=== PATIENT | male | born 1960 | race Caucasian/White ===

== ENCOUNTER 2022-04-22 20:30 | Inpatient (IN) | payer OTHER, MEDICAID ==
[~2022-04-22] VITALS: Ht 165.1 cm; Wt 61.7 kg
[2022-04-22 21:46] VITALS: BP_SYST 138
--- NOTE | 2022-04-22 21:54 | NUR ---
Patient to bed 2 for evaluation and treatment
--- NOTE | 2022-04-22 23:20 | NUR ---
STANLEY Olsen at bedside examining patient.
[2022-04-22] MEDS ORDERED: MAG HYDROX/AL HYDROX/SIMETH 30 ML, LIDOCAINE VISCOUS 2% 15ML (PO) 15 ML, DICYCLOMINE HC... PO ONE ×3 (23:30)
--- NOTE | 2022-04-23 00:01 | NUR ---
[facility]
[2022-04-23 01:29] LABS: BILIRUBIN,URINE 1+ (NEGATIVE); BLOOD, URINE 3+ (NEGATIVE); COLOR,URINE YELLOW (YELLOW); GLUCOSE,URINE NEGATIVE (NEGATIVE); KETONES,URINE 3+ (NEGATIVE); LEUKOCYTE ESTERASE ,URINE NEGATIVE (NEGATIVE); NITRITE, URINE NEGATIVE (NEGATIVE); PH,URINE 6.5 (5.0-8.0); PROTEIN URINE 1+ (NEGATIVE)
[2022-04-23 01:29] LABS: HEMATOCRIT 36.7 % (36-54); HEMOGLOBIN 12.8 g/dL (14.0-18.0); LYMPHOCYTES # (AUTO) 0.8 K/uL (1.0-5.5); LYMPHOCYTES % (AUTO) 7.8 % (20.5-51.5); MEAN CORPUSCULAR HEMOGLOBIN 30 pg (27-31); MEAN CORPUSCULAR HGB CONC 35 % (32-36); MEAN CORPUSCULAR VOLUME 87 fL (79.0-98.0); MONOCYTES % (AUTO) 9.3 % (1.7-9.3); NEUTROPHILS # (AUTO) 8.9 K/uL (1.8-7.7); NEUTROPHILS % (AUTO) 82.9 % (40.0-70.0); PLATELET COUNT (AUTO) 261 K/uL (130-430); RED BLOOD CELL COUNT(AUTO) 4.21 MIL/uL (4.2-6.2); RED CELL DISTRIBUTION WIDTH 12.8 % (9.0-15.0); WHITE BLOOD COUNT (AUTO) 10.8 K/uL (4.8-10.8)
[2022-04-23 01:41] LABS: CALCIUM 9.3 mg/dL (8.4-11.0); CREATININE 0.82 mg/dL (0.55-1.30)
[2022-04-23 01:48] LABS: ALBUMIN 3.3 g/dL (3.4-4.8); TOTAL BILIRUBIN 1.6 mg/dL (0.0-1.0)
--- NOTE | 2022-04-23 01:55 | NUR ---
Admit bed requested Patient will be admitted to care of . Admitted to MS unit. Diagnosis : SBO Inpatient (Yes or No) Y Observation (Yes or No) N Orientation concerns or request close to nursing station (Yes or No) N Covid Status: PENDING From Home (Yes or if No enter name of facility) Y
[2022-04-23] MEDS ORDERED: D5/0.45 NS 1,000 ML IV SCH (02:00)
[2022-04-23 02:22] LABS: CLARITY/URINE HAZY (CLEAR)
[2022-04-23 02:25] LABS: BACTERIA,URINE None Seen /HPF (None Seen); RBC,URINE 80-100 /HPF (0-3); WBC,URINE 0-3 /HPF (0-3)
--- NOTE | 2022-04-23 02:30 | NUR ---
# 22 gauge angiocath placed to L HAND. Use of asceptic technique. Opsite placed over site. Blood return noted. Flushed with 10 cc of normal saline. No evidence of infiltration noted. Patient tolerated well.
[2022-04-23] MEDS ORDERED: NACL 0.9% 1,000 ML IV ONE (03:15)
--- NOTE | 2022-04-23 04:51 | NUR ---
Patient will be admitted to care of MD Jade. Admitted to MS unit. Will go to room 117B. Complete and up to date summary report printed. SBAR report to be given at bedside with opportunity for questions.
--- NOTE | 2022-04-23 05:14 | NUR ---
Report givent to ASHLEY Saavedra.
[2022-04-23 05:57] VITALS: BP_SYST 141
--- NOTE | 2022-04-23 06:10 | NUR ---
Dr. Han Incoming call from Dr. Han. Received orders for NGT to low intermittent suction; ADAM
--- NOTE | 2022-04-23 06:45 | NUR ---
NG tube placed in the Left nares, pending xtray to confirm placement, will endorse to AM RN to connect wall suction once results of xtray are done.
[2022-04-23 08:41] VITALS: BP_SYST 147
[2022-04-23] MEDS ORDERED: MORPHINE 2 MG/ML INJ. SYRINGE IVP PRN (10:45)
[2022-04-23] MEDS ORDERED: ONDANSETRON HCL 4 MG/2 ML VIAL IVP PRN (10:45)
[2022-04-23] MEDS ORDERED: NALOXONE HCL 0.4 MG/ML AMP (NARCAN) IVP PRN (10:45)
[2022-04-23] MEDS ORDERED: LORazepam 2 MG/ML VIAL IVP PRN (10:45)
[2022-04-23] MEDS: D5NS 1,000 ML IV SCH ×2 (15:23→18:02)
[2022-04-23 17:58] VITALS: BP_SYST 140
--- NOTE | 2022-04-23 19:48 | NUR ---
RECEIVED PT LYING IN BED, NO DISTRESS NOTED, DENIES PAIN. AAOX4. PULLED NGT 5CM PER RADIOLOGIST. BROWN DRAINAGE NOTED. ABD MILDLY DISTENDED AND FIRM. IV TO RT FA SITE CDI.
[2022-04-23 20:00] VITALS: BP_SYST 134
[2022-04-24 02:35] VITALS: BP_SYST 137
[2022-04-24] MEDS: D5NS 1,000 ML IV SCH ×3 (06:45→21:13)
[2022-04-24 06:52] LABS: BASOPHILS % (AUTO) 0.1 % (0.0-2.0); EOSINOPHILS % (AUTO) 0.1 % (0.0-4.0); HEMATOCRIT 36.2 % (36-54); HEMOGLOBIN 12.6 g/dL (14.0-18.0); LYMPHOCYTES # (AUTO) 0.8 K/uL (1.0-5.5); LYMPHOCYTES % (AUTO) 10.4 % (20.5-51.5); MEAN CORPUSCULAR HEMOGLOBIN 31 pg (27-31); MEAN CORPUSCULAR HGB CONC 35 % (32-36); MEAN CORPUSCULAR VOLUME 88 fL (79.0-98.0); MONOCYTES # (AUTO) 1.1 K/uL (0.0-1.0); MONOCYTES % (AUTO) 14.8 % (1.7-9.3); NEUTROPHILS # (AUTO) 5.4 K/uL (1.8-7.7); NEUTROPHILS % (AUTO) 74.6 % (40.0-70.0); PLATELET COUNT (AUTO) 248 K/uL (130-430); RED BLOOD CELL COUNT(AUTO) 4.13 MIL/uL (4.2-6.2); RED CELL DISTRIBUTION WIDTH 12.9 % (9.0-15.0); WHITE BLOOD COUNT (AUTO) 7.2 K/uL (4.8-10.8)
[2022-04-24 07:02] LABS: CALCIUM 8.3 mg/dL (8.4-11.0); CREATININE 0.87 mg/dL (0.55-1.30)
[2022-04-24 08:25] VITALS: BP_SYST 132
[2022-04-24 11:55] VITALS: BP_SYST 143
[2022-04-24] MEDS ORDERED: GASTROGRAFIN 120 ML ONE (13:11)
[2022-04-24 16:50] VITALS: BP_SYST 134
[2022-04-24 18:15] VITALS: BP_SYST 138
[2022-04-24 18:19] LABS: BILIRUBIN,URINE NEGATIVE (NEGATIVE); BLOOD, URINE 3+ (NEGATIVE); COLOR,URINE YELLOW (YELLOW); GLUCOSE,URINE NEGATIVE (NEGATIVE); KETONES,URINE TRACE (NEGATIVE); LEUKOCYTE ESTERASE ,URINE NEGATIVE (NEGATIVE); NITRITE, URINE NEGATIVE (NEGATIVE); PROTEIN URINE 1+ (NEGATIVE)
[2022-04-24 18:20] LABS: CLARITY/URINE CLOUDY (CLEAR)
[2022-04-24 18:47] LABS: BACTERIA,URINE MODERATE /HPF (None Seen); WBC,URINE 0-3 /HPF (0-3)
--- NOTE | 2022-04-24 20:14 | NUR ---
Called X-ray dept about the small bowel follow through. Purchase Request Editor will come early to see if the contrast reaches to the large intestine and will do the x-ray. For now, patient is off suction, NGT still clamped since 1330. Will endorse to the RN JOAN.
[2022-04-24 20:15] VITALS: BP_SYST 148
--- NOTE | 2022-04-24 21:05 | NUR ---
NGT Back to Low Intermittent Suction Called and spoke with quality assurance qa lab technician and per tech pt finished SB follow through. Pt connected back to low intermittent suction. Noted light green drainage. Still no BM, no c/o N/V or abd pain. at bedside. To monitor.
--- NOTE | 2022-04-24 22:13 | NUR ---
Received call from MD Received call from Dr. Madison and order for consent for Release of Small Bowel Obstruction, NPO.
[2022-04-25 01:30] VITALS: BP_SYST 151
[2022-04-25 06:39] LABS: BASOPHILS % (AUTO) 0.1 % (0.0-2.0); EOSINOPHILS % (AUTO) 0.3 % (0.0-4.0); HEMOGLOBIN 12.6 g/dL (14.0-18.0); LYMPHOCYTES # (AUTO) 0.6 K/uL (1.0-5.5); LYMPHOCYTES % (AUTO) 10.7 % (20.5-51.5); MEAN CORPUSCULAR HEMOGLOBIN 31 pg (27-31); MEAN CORPUSCULAR HGB CONC 35 % (32-36); MEAN CORPUSCULAR VOLUME 89 fL (79.0-98.0); MONOCYTES # (AUTO) 0.9 K/uL (0.0-1.0); MONOCYTES % (AUTO) 14.6 % (1.7-9.3); NEUTROPHILS # (AUTO) 4.5 K/uL (1.8-7.7); NEUTROPHILS % (AUTO) 74.3 % (40.0-70.0); PLATELET COUNT (AUTO) 260 K/uL (130-430); RED BLOOD CELL COUNT(AUTO) 4.06 MIL/uL (4.2-6.2); RED CELL DISTRIBUTION WIDTH 12.6 % (9.0-15.0); WHITE BLOOD COUNT (AUTO) 6.1 K/uL (4.8-10.8)
[2022-04-25] MEDS: D5NS 1,000 ML IV SCH ×2 (06:43→16:57)
--- NOTE | 2022-04-25 06:45 | NUR ---
Closing notes/NPO Pt alert, awake, no s/s distress. NGT to left nares to low intermittent suction. Pt maintained NPO. IVF infusing at ordered rate R. FA clear and patent. Tong Xie informed of Dr. Madison order for surgery today. critical power technician at bedside. MRSA collected and sent to lab. Call light within reach. Safety maintained. To endorse to AM nurse.
[2022-04-25 06:56] LABS: CALCIUM 8.7 mg/dL (8.4-11.0); CREATININE 0.96 mg/dL (0.55-1.30)
[2022-04-25 07:10] LABS: PROTHROMBIN TIME 10.6 SECS (9.5-12.5)
[2022-04-25 08:00] VITALS: BP_SYST 145
[2022-04-25 12:00] VITALS: BP_SYST 150
[2022-04-25] MEDS ORDERED: KCL 20 mEq in 100 mL (PREMIX) 100 ML IV ONE (14:45)
[2022-04-25 16:27] VITALS: BP_SYST 149
[2022-04-25] MEDS: cefTRIAXone 1 GM in D5W 50 ML IV SCH (16:54)
[2022-04-25] MEDS: POTASSIUM CHLORIDE 20 mEq in 100 mL (PREMIX) 100 ML x 2 doses IV SCH ×2 (16:55→22:04)
[2022-04-25 20:00] VITALS: BP_SYST 120
--- NOTE | 2022-04-25 20:30 | NUR ---
at station Dr. Madison at station and spoke with pt's Carrie and House sup regarding surgery plan tomorrow afternoon after his 11:30 case.
[2022-04-26 02:06] VITALS: BP_SYST 134
[2022-04-26] MEDS: D5NS 1,000 ML IV SCH ×2 (04:48→18:27)
--- NOTE | 2022-04-26 06:15 | NUR ---
Closing notes/Consent signed Pt awake, no s/s distress noted. NGT L nares in place connected to low intermittent suction with good output dark green drainage. ASHLEY Rodríguez explained consent to pt. and Pt signed consent as RN spoke with pt's /daughter on the phone. Pt maintained NPO. IVF infusing at ordered rate R. FA 22G, clear and patent. Call light within reach. To endorse to AM nurse.
[2022-04-26 06:54] LABS: BASOPHILS % (AUTO) 0.1 % (0.0-2.0); EOSINOPHILS # (AUTO) 0.1 K/uL (0.0-0.4); EOSINOPHILS % (AUTO) 1.4 % (0.0-4.0); HEMATOCRIT 35.8 % (36-54); HEMOGLOBIN 12.1 g/dL (14.0-18.0); LYMPHOCYTES # (AUTO) 1.1 K/uL (1.0-5.5); LYMPHOCYTES % (AUTO) 17.5 % (20.5-51.5); MEAN CORPUSCULAR HEMOGLOBIN 30 pg (27-31); MEAN CORPUSCULAR HGB CONC 34 % (32-36); MEAN CORPUSCULAR VOLUME 89 fL (79.0-98.0); MONOCYTES # (AUTO) 0.9 K/uL (0.0-1.0); MONOCYTES % (AUTO) 14.7 % (1.7-9.3); NEUTROPHILS # (AUTO) 4.1 K/uL (1.8-7.7); NEUTROPHILS % (AUTO) 66.3 % (40.0-70.0); PLATELET COUNT (AUTO) 280 K/uL (130-430); RED BLOOD CELL COUNT(AUTO) 4.02 MIL/uL (4.2-6.2); WHITE BLOOD COUNT (AUTO) 6.2 K/uL (4.8-10.8)
[2022-04-26 07:04] LABS: CALCIUM 8.7 mg/dL (8.4-11.0); CREATININE 0.84 mg/dL (0.55-1.30)
[2022-04-26 08:00] VITALS: BP_SYST 148
--- NOTE | 2022-04-26 08:00 | NUR ---
MORNING ROUNDS: PATIENT RESTING DURING ROUNDS. IV FLUIDS RUNNING AT RIGHT FOREARM INTACT. LEFT NOSTRIL CONNECTED TO LIS ,GREENISH COLOR IN LARGE AMOUNT.CALL LIGHT WITH IN REACH. BED LOCKED AT LOWEST POSITION. CONTINUE TO MONITOR. Addendum: 04/26/22 at 1342 by Carrie Evans RN NPO MAINTAINED. FOR SURGERY TODAY ORDERED.
--- NOTE | 2022-04-26 13:35 | NUR ---
TO OR: DISCONNECT PATIENT FROM LIS ,LEFT NG TUBE CLAMPED. IV AT RIGHT FOREARM TO SALINE LOCK.PRE OP CHECK LIST DONE.CHG RENDERED BY WITH ASSIST. TO OR PER OLY,IN STABLE CONDITION.
[2022-04-26] MEDS ORDERED: SUGAMMADEX SODIUM 200 MG/2 ML VIAL IV ONE (13:44)
[2022-04-26] MEDS ORDERED: NS IRRIG SOLN 1000 ML IR ONE (13:44)
[2022-04-26] MEDS ORDERED: ROCURONIUM BROMIDE 10 MG/ML (ZEMURON) ONE (13:44)
[2022-04-26] MEDS ORDERED: SUCCINYLCHOLINE CHLORIDE 20 MG/ML(QUELICIN) ONE (13:44)
[2022-04-26] MEDS ORDERED: SEVOFLURANE 15 MIN GAS INH ONE (13:44)
[2022-04-26] MEDS ORDERED: BUPIVACAINE /PF 0.25% 10 ML VIAL INJ ONE (13:44)
[2022-04-26] MEDS ORDERED: PROPOFOL 200MG/ 20ML VIAL (DIPRIVAN) IV ONE (13:44)
[2022-04-26] MEDS ORDERED: D5W 1,000 ML IV.SOLN IV ONE (13:44)
--- NOTE | 2022-04-26 15:07 | NUR ---
RN ROUNDS: PATIENT STILL IN OR.
[2022-04-26 15:20] VITALS: BP_SYST 131
[2022-04-26] MEDS ORDERED: MORPHINE 2 MG/ML INJ. SYRINGE ONE ×2 (15:33→16:09)
[2022-04-26] MEDS ORDERED: MORPHINE 4 MG INJ. 4 MG/ML VIAL IVP PRN (15:45)
[2022-04-26] MEDS ORDERED: METOCLOPRAMIDE HCL 10 MG/2 ML VIAL IVP PRN (15:45)
[2022-04-26] MEDS ORDERED: ONDANSETRON HCL 4 MG/2 ML VIAL IVP PRN (15:45)
[2022-04-26 16:30] VITALS: BP_SYST 124
--- NOTE | 2022-04-26 16:30 | NUR ---
POST OP NOTES: PATIENT BACK FROM SURGERY. ROUTINE POST OP VITAL SIGNS TAKEN.AFEBRILE AND STABLE. DENIES ANY PAIN THIS TIME. ABDOMINAL SURGICAL DRESSING CLEAN AND DRY.LEFT NG TUBE CONNECT BACK TO LIS ORDERED [id number] REPORTED. AT THE BEDSIDE.
--- NOTE | 2022-04-26 17:00 | NUR ---
Dietitian Recommendations * If/when medically appropriate, recommend clear liquid diet < 2-3 days CLD -> FLD -> GI soft [vegetarian] * Recommend NPO for no longer than 5 days d/t poor nutrition MANAGER LABOR RELATIONS * If unable to tolerate PO after 7-10 days, consider PN support * Consider [facility] for GI health Please refer to nutrition assessment for details, thanks! Corrie Mars MPH, RDN
--- NOTE | 2022-04-26 18:25 | NUR ---
PICC LINE PLACEMENT: PICC LINE PLACED ASEPTICALLY. STAT PORTABLE X-RAY DONE. OKAY TO USE PER PICC LINE NURSE.
[2022-04-26 18:26] VITALS: BP_SYST 135
[2022-04-26] MEDS: cefTRIAXone 1 GM in D5W 50 ML IV SCH (18:29)
[2022-04-26] MEDS: MORPHINE 4 MG INJ. 4 MG/ML VIAL IVP PRN (18:58)
--- NOTE | 2022-04-26 19:40 | NUR ---
END OF SHIFT: ENDORSED TO NIGHT NURSE PATIENT IN STABLE CONDITION.PAIN MEDS JUST GIVEN,PATIENT COMFORTABLE.LEFT NG TUBE CONNECTED TO LIS IN LARGE AMOUNT O GREENISH COLOR DISCHARGES.CALL LIGHT WITH IN REACH. BED LOCKED AT LOWEST POSITION.
[2022-04-26 20:00] VITALS: BP_SYST 143
[2022-04-27 04:30] VITALS: BP_SYST 143
[2022-04-27] MEDS: D5NS 1,000 ML IV SCH ×2 (05:58→15:52)
[2022-04-27] MEDS: MORPHINE 4 MG INJ. 4 MG/ML VIAL IVP PRN ×2 (06:17→21:24)
[2022-04-27 07:11] LABS: BASOPHILS % (AUTO) 0.1 % (0.0-2.0); EOSINOPHILS % (AUTO) 0.4 % (0.0-4.0); HEMATOCRIT 37.4 % (36-54); HEMOGLOBIN 12.7 g/dL (14.0-18.0); LYMPHOCYTES # (AUTO) 0.9 K/uL (1.0-5.5); LYMPHOCYTES % (AUTO) 10.2 % (20.5-51.5); MEAN CORPUSCULAR HEMOGLOBIN 31 pg (27-31); MEAN CORPUSCULAR HGB CONC 34 % (32-36); MEAN CORPUSCULAR VOLUME 90 fL (79.0-98.0); MONOCYTES % (AUTO) 11.1 % (1.7-9.3); NEUTROPHILS # (AUTO) 7.1 K/uL (1.8-7.7); NEUTROPHILS % (AUTO) 78.2 % (40.0-70.0); PLATELET COUNT (AUTO) 308 K/uL (130-430); RED BLOOD CELL COUNT(AUTO) 4.15 MIL/uL (4.2-6.2); RED CELL DISTRIBUTION WIDTH 12.8 % (9.0-15.0); WHITE BLOOD COUNT (AUTO) 9.1 K/uL (4.8-10.8)
[2022-04-27 07:36] LABS: ALBUMIN 2.1 g/dL (3.4-4.8); C-REACTIVE PROTEIN QUANT 52.4 mg/dL (0-0.5); CALCIUM 8.5 mg/dL (8.4-11.0); CREATININE 1.01 mg/dL (0.55-1.30); TOTAL BILIRUBIN 0.8 mg/dL (0.0-1.0)
[2022-04-27 07:59] VITALS: BP_SYST 136
[2022-04-27 10:21] LABS: ERYTHROCYTE SEDIMENTATION RATE 21 MM/HR (0-15)
--- NOTE | 2022-04-27 12:48 | NUR ---
PATIENT IS SAFE TO CONTINUE TO AMBULATE WITH NURSING SUPERVISION. HE DOES NOT NEED FURTHER PHYSICAL THERAPY. SEE THE EVALUATION.
[2022-04-27 12:52] VITALS: BP_SYST 129
--- NOTE | 2022-04-27 14:33 | NUR ---
Dr. Madison came to see patient. Patient to have NG tube still. Ok for ice chips.
[2022-04-27 17:53] VITALS: BP_SYST 144
[2022-04-27 19:00] VITALS: BP_SYST 151
[2022-04-27 20:00] VITALS: BP_SYST 151
[2022-04-28] MEDS: D5NS 1,000 ML IV SCH ×2 (06:42→09:51)
[2022-04-28 07:32] LABS: CALCIUM 8.3 mg/dL (8.4-11.0); CREATININE 0.86 mg/dL (0.55-1.30)
[2022-04-28 07:39] VITALS: BP_SYST 139
--- NOTE | 2022-04-28 07:39 | NUR ---
OPENING NOTE Patient in bed resting. A/O x 4, Serbian speaking. No pain, no SOB, no distress at this time. Breathing even and unlabored on RA. Patient PICC to Left arm patent on infusion pump. Patient NPO except for ICE chips per Surgeon Los. Patient also has NG tube to left nares for continuous suction. All needs met at this time. Bed locked in lowest position, Call light within reach. Will continue to monitor.
[2022-04-28 08:23] LABS: BASOPHILS % (AUTO) 0.1 % (0.0-2.0); EOSINOPHILS # (AUTO) 0.4 K/uL (0.0-0.4); EOSINOPHILS % (AUTO) 3.9 % (0.0-4.0); HEMATOCRIT 35.7 % (36-54); HEMOGLOBIN 11.9 g/dL (14.0-18.0); LYMPHOCYTES % (AUTO) 10.5 % (20.5-51.5); MEAN CORPUSCULAR HEMOGLOBIN 30 pg (27-31); MEAN CORPUSCULAR HGB CONC 33 % (32-36); MEAN CORPUSCULAR VOLUME 91 fL (79.0-98.0); MONOCYTES # (AUTO) 1.1 K/uL (0.0-1.0); MONOCYTES % (AUTO) 12.1 % (1.7-9.3); NEUTROPHILS # (AUTO) 6.9 K/uL (1.8-7.7); NEUTROPHILS % (AUTO) 73.4 % (40.0-70.0); PLATELET COUNT (AUTO) 275 K/uL (130-430); RED BLOOD CELL COUNT(AUTO) 3.94 MIL/uL (4.2-6.2); WHITE BLOOD COUNT (AUTO) 9.4 K/uL (4.8-10.8)
[2022-04-28 12:01] VITALS: BP_SYST 146
--- NOTE | 2022-04-28 12:10 | NUR ---
ROUNDS: Patient in bed resting with at bedside. No pain, no SOB, no distress at this time. Breathing even and unlabored on RA. Patient NG tube to left nares patent and in place for continuous suction. All needs met at this time. Bed locked in lowest position, Call light within reach. Will continue to monitor.
--- NOTE | 2022-04-28 12:47 | NUR ---
MD Crow BERNARD called to check in with patient. Informed him how patient is up and moving and still no BM. stated post op normally 5-7 days for a BM. wants primary to initiate TPN orders for nutirition for meantime. Also informed MD Maria regarding low potassium of 3.3 will start Krider.
[2022-04-28] MEDS ORDERED: *TPN PER PHARMACY XX PRN (13:00)
[2022-04-28] MEDS ORDERED: DEXTROSE 50% JECT 50 ML DISP.SYRIN IVP PRN (13:00)
--- NOTE | 2022-04-28 13:03 | NUR ---
MD STUBBS Spoke with MD Jordan regarding TPN orders and Krider. placed new orders.
[2022-04-28] MEDS ORDERED: POTASSIUM CHLORIDE 40 MEQ in NS 250 ML IV ONE (13:15)
[2022-04-28] MEDS ORDERED: NALOXONE HCL 0.4 MG/ML AMP (NARCAN) IVP PRN (13:45)
[2022-04-28] MEDS ORDERED: POTASSIUM CHLORIDE 40 MEQ in D5W 250 ML IV ONE (14:15)
[2022-04-28] MEDS: KCL 40 mEq in D5W 1000 mL 1,000 ML IV SCH ×2 (14:50→23:06)
[2022-04-28 16:22] VITALS: BP_SYST 142
--- NOTE | 2022-04-28 18:59 | NUR ---
CLOSING NOTE Patient in bed resting. A/O x 4, Telugu speaking. No pain, no SOB, no distress at this time. Breathing even and unlabored on RA. Patient PICC to Left arm patent on infusion pump. Patient NPO except for ICE chips per Surgeon Los. Patient also has NG tube to left nares for continuous suction. All needs met at this time. Bed locked in lowest position, Call light within reach. Will endorse to nightshift nurse.
[2022-04-28 20:00] VITALS: BP_SYST 145
[2022-04-28] MEDS: MORPHINE 4 MG INJ. 4 MG/ML VIAL IVP PRN (21:35)
--- NOTE | 2022-04-28 22:48 | NUR ---
Patient in bed. No acute distress noted. C/o pain prn given. Will continue to monitor.
[2022-04-29] MEDS: KCL 40 mEq in D5W 1000 mL 1,000 ML IV SCH ×4 (03:15→23:20)
[2022-04-29 04:00] VITALS: BP_SYST 136
[2022-04-29 07:30] VITALS: BP_SYST 144
--- NOTE | 2022-04-29 07:30 | NUR ---
OPENING NOTE Patient in bed resting. A/O x 4, Arabic speaking, at bedside. No pain, no SOB, no distress at this time. Breathing even and unlabored on RA. Patient PICC to Left arm patent on infusion pump. Patient NPO except for ICE chips per Surgeon Los. Patient also has NG tube to left nares for continuous suction. All needs met at this time. Bed locked in lowest position, Call light within reach. Will continue to monitor.
[2022-04-29 08:05] LABS: ALBUMIN 2.1 g/dL (3.4-4.8); BASOPHILS % (AUTO) 0.2 % (0.0-2.0); CALCIUM 8.3 mg/dL (8.4-11.0); CREATININE 0.71 mg/dL (0.55-1.30); EOSINOPHILS # (AUTO) 0.3 K/uL (0.0-0.4); EOSINOPHILS % (AUTO) 3.5 % (0.0-4.0); HEMATOCRIT 33.6 % (36-54); HEMOGLOBIN 11.3 g/dL (14.0-18.0); LYMPHOCYTES % (AUTO) 11.6 % (20.5-51.5); MEAN CORPUSCULAR HEMOGLOBIN 30 pg (27-31); MEAN CORPUSCULAR HGB CONC 34 % (32-36); MEAN CORPUSCULAR VOLUME 90 fL (79.0-98.0); MONOCYTES # (AUTO) 0.8 K/uL (0.0-1.0); MONOCYTES % (AUTO) 9.3 % (1.7-9.3); NEUTROPHILS # (AUTO) 6.2 K/uL (1.8-7.7); NEUTROPHILS % (AUTO) 75.4 % (40.0-70.0); PHOSPHORUS 2.5 mg/dL (2.7-4.5); PLATELET COUNT (AUTO) 301 K/uL (130-430); RED BLOOD CELL COUNT(AUTO) 3.75 MIL/uL (4.2-6.2); RED CELL DISTRIBUTION WIDTH 12.7 % (9.0-15.0); TOTAL BILIRUBIN 0.7 mg/dL (0.0-1.0); WHITE BLOOD COUNT (AUTO) 8.2 K/uL (4.8-10.8)
--- NOTE | 2022-04-29 09:45 | NUR ---
Nutrition F/U Admitting Diagnosis Small Bowel Obstruction Reviewed Pertinent Medical/Surgical Hx Medical Record Patient Medical History Comment: Per EMR: 61y male with PMHx s/p lap repair for recurrent hernia 04/18 who presented to ED c/o hiccups x 24h and abdominal pain. Patient is s/p exploratory lap 04/26 at [facility]. 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 Subjective Information: RD visited pt this morning. Pt was sitting in bedside chair w/ present. Pt is Macedonian-speaking, however, was able to answer RD verbal interview questions in [place]. is aware that pt will start TPN today, and this will be the first time he has had this type of alternative nutrition support -- she attested to pt's use of EN support via NGT in the past. stated pt has been a vegetarian since 1982, but does allow egg whites and salmon in his diet. No current N/V/D, however, some C. Pt is not yet passing gas, however, stated that pt is cleared to walk w/ walker and 's assistance -- RD encouraged them to walk when feeling well to help w/ peristalsis. RD calibrated pt's bedscale to zero and weighed pt -- 126#, closely c/w pt's physical appearance. stated that pt was about 130# 2 mo ago, and likely had 4# wt loss since recent hernia Sx. She also stated pt has had a lot of wt loss over the past 3 years d/t CA Dx. RD witnessed gastric contents in canister from NGT to suction (~600 m/brown-colored). Per EMR review, pt is on RA; no emesis noted; no BM noted yet; PICC line to L arm noted; NPO except for ice chips per surgeon; NGT to L nares for continuous suction noted; active bowel sounds. RD relayed TPN recs to pharmacy team at 0930. Current Diet Order/Nutrition Support: NPO x6 days Education Provided Not Indicated Pertinent Medications: KCl/D5% at 120 ml/hr (490 kcal/day), morphine Pertinent Labs: BG 137 H, Phos 2.5 L, Mg 2.2 H, ALB 2.1 L, CRP 52.4 H, HDL 37 L, TG 78 WNL Height (Feet) 5 feet Height (Inches) 5.00 inches Weight (Pounds) 136 pounds (no documented changes since 04/26 -- however, may be inaccurate) Patient Weight 61.689 kg Body Mass Index 22.63 kg/m2 NEW BEDSCALE WT: 126#/57.3 kg (04/29) NEW BMI: 21 kg/m2 (normal) UBW: 148#/67.3 kg ("healthy wt" from 2019 prior to CA Dx per report 04/29) WT CHANGE: 22# wt loss/15% wt change within 3 years -- insignificant Gordon/Adjusted Body Weight 136#/62 kg Usual Diet At Home Vegetarian, per RN screening tool Skin Integrity Comment: Bam Score: 17 w/ abd surgical incisions x4 sites; no documented edema 04/29 Current % PO 0% - NPO NEW Estimated Energy Expenditure (kcals/day) 860-1146 (15-20 kcal/day CBW (57.3 kg) for hypocaloric feeding for first 3-5 days to monitor risk for RFS) Estimated Protein Required (g/day) 69-86 (1.2-1.5 g/kg CBW (57.3 kg) for Sx wounds, unintentional weight loss a/w catabolic illness) Estimated Fluid Required (l/day) 800 ml-1.2 L (1 ml/kcal/day for maintenance) Problem/Etiology/Signs/Symptoms * Altered GI function r/t SBO a/e/b GI surgery to clear obstruction. *Ongoing * Inadequate PO intake r/t diet order a/e/b NPO x3 days. *Resolved, plan to start TPN tonight Expected Outcomes/Goals Nutrition initiated w/in 1-2 days, nutrition-related labs WNL, wt maintenance/skin integrity, improvements in GI function Dietitian Recommendations * TPN D40%, AA10% at 50 ml/hr (goal rate), IL20% at 5 ml/hr daily via central line Provides: 1296 kcal/day, 60 gm protein/day, 1320 ml total volume/day, and GIR: 2.9 mg CHO/kg/min Meets: 113% of upper end of estimated caloric needs and 87% of lower end of estimated protein needs * Consider [facility] for GI health Follow Up High Risk: F/U in 2-3 days Addendum: 04/29/22 at [address] CORRECTION: Per report 04/29: pt had brain lymphoma Dx March 2020 and received chemotherapy, which stopped in 2020 -- pt has since been in remission.
--- NOTE | 2022-04-29 10:00 | NUR ---
Dietitian Recommendations * TPN D40%, AA10% at 50 ml/hr (goal rate), IL20% at 5 ml/hr daily via central line Provides: 1296 kcal/day, 60 gm protein/day, 1320 ml total volume/day, and GIR: 2.9 mg CHO/kg/min Meets: 113% of upper end of estimated caloric needs and 87% of lower end of estimated protein needs * Consider [facility] for GI health LP, MS, RD Please refer to Nutrition F/U for details.
--- NOTE | 2022-04-29 11:09 | NUR ---
MD Crow BERNARD called to check on patient status. Gave report and wants us to Clamp the NG tube every 4 hours then release and if less than 50cc is then removed then patient can have NG tube removed. Will endorse to oncoming shift.
[2022-04-29 12:05] VITALS: BP_SYST 121
[2022-04-29 16:05] VITALS: BP_SYST 125
--- NOTE | 2022-04-29 16:30 | NUR ---
Patients NG tube was clamped while patient went for a walk with .
--- NOTE | 2022-04-29 17:15 | NUR ---
Patient back in bed and connected NG tube to suction. Noted 100cc aspirated after clamping. Patient will be clamped again at 2029. Will endorse to cage shift manager nurse.
[2022-04-29 20:00] VITALS: BP_SYST 140
--- NOTE | 2022-04-29 20:22 | NUR ---
RECEIVED REPORT ON PATIENT FROM OSKAR, SCENE SHIFTER, ASSUMED CARE, AND STARTED ASSESSMENT.
[2022-04-29] MEDS: K PHOS IV SCH ×6 (21:00)
[2022-04-29] MEDS: [UNRECOGNIZED DRUG - OTHER] IV SCH ×6 (21:00)
[2022-04-29] MEDS: TRACE ELEMENTS IV SCH ×6 (21:00)
[2022-04-29] MEDS: MVI IV SCH ×6 (21:00)
[2022-04-29] MEDS: TPN CENTRAL IV SCH ×6 (21:00)
[2022-04-30] MEDS: [UNRECOGNIZED DRUG - OTHER] IV SCH ×6 (03:35)
[2022-04-30] MEDS: TPN CENTRAL IV SCH ×6 (03:35)
[2022-04-30] MEDS: MVI IV SCH ×6 (03:35)
[2022-04-30] MEDS: TRACE ELEMENTS IV SCH ×6 (03:35)
[2022-04-30] MEDS: K PHOS IV SCH ×6 (03:35)
[2022-04-30] MEDS: INSULIN REGULAR, HUMAN 100 UNITS/ML, 3 ML VIAL (humuLIN R) SUBCUT PRN (06:42)
[2022-04-30 06:57] LABS: BASOPHILS % (AUTO) 0.3 % (0.0-2.0); EOSINOPHILS # (AUTO) 0.2 K/uL (0.0-0.4); EOSINOPHILS % (AUTO) 2.9 % (0.0-4.0); HEMATOCRIT 29.8 % (36-54); HEMOGLOBIN 10.3 g/dL (14.0-18.0); LYMPHOCYTES # (AUTO) 0.8 K/uL (1.0-5.5); LYMPHOCYTES % (AUTO) 11.9 % (20.5-51.5); MEAN CORPUSCULAR HEMOGLOBIN 30 pg (27-31); MEAN CORPUSCULAR HGB CONC 34 % (32-36); MEAN CORPUSCULAR VOLUME 88 fL (79.0-98.0); MONOCYTES # (AUTO) 0.6 K/uL (0.0-1.0); MONOCYTES % (AUTO) 8.3 % (1.7-9.3); NEUTROPHILS # (AUTO) 5.4 K/uL (1.8-7.7); NEUTROPHILS % (AUTO) 76.6 % (40.0-70.0); PLATELET COUNT (AUTO) 279 K/uL (130-430); RED BLOOD CELL COUNT(AUTO) 3.39 MIL/uL (4.2-6.2); RED CELL DISTRIBUTION WIDTH 13.2 % (9.0-15.0); WHITE BLOOD COUNT (AUTO) 7.1 K/uL (4.8-10.8)
[2022-04-30 07:42] LABS: ALBUMIN 2.1 g/dL (3.4-4.8); CREATININE 0.86 mg/dL (0.55-1.30); PHOSPHORUS 2.6 mg/dL (2.7-4.5); TOTAL BILIRUBIN 0.7 mg/dL (0.0-1.0)
--- NOTE | 2022-04-30 07:47 | NUR ---
REPORT GIVEN TO DAYSHIFT RN, AND CARE WAS TURNED OVER TO HER.
[2022-04-30 08:37] VITALS: BP_SYST 143
[2022-04-30] MEDS ORDERED: NA PHOS 15 MM in NS 250 ML IV ONE (09:45)
[2022-04-30 11:35] VITALS: BP_SYST 133
[2022-04-30] MEDS: KCL 40 mEq in D5W 1000 mL 1,000 ML IV SCH ×2 (12:07→20:49)
[2022-04-30 15:50] VITALS: BP_SYST 124
--- NOTE | 2022-04-30 19:00 | NUR ---
LATE ENTRY DUE TO CARE 0800- RECEIVED PT IN BED. A/OX YORUBA SPEAKING. NG TUBE RECEIVED CLAMPED. OPEN AND CONNECTED TO INTERMITTENT SUCTION 150 ML BROWNISH SECRETIONS RECEIVED IVF AND TPN CONITNUE ORDERED. PT DENIES ANY PAIN OR ORTHER DISCOMOFRT. HOB ELEVATED SAFTEY AND FALL PRECAUTIONS ON PLACE. 0930- PT WALKED WITH APPLICATION SUPPORT ADMINISTRATOR TO BATHROOM WITH STEADY GAIT. 1100PT STABLE NOT IN ACUTE DISTRESS. AT BED SIDE. POC DISCUSSED WITH VERBALIZED UNDERSTANDING 1330- DR KUHN. CALLED AND GAVE ORDER TO CLAMPED NG TUBE FOR 8 HR AND RECHECK SECRETIONS. ORDER ENTERED 1630- PT STABLE NOT IN ACUTE DISTRESS. DENIES ANY PAIN . NEEDS ATTENDED IVF CONITNUE. PT TAKING CLEAR LIQUID ORDERED BY DR HAN. TOLERATING WELL. DENIES ANY NAUSEA OR VOMITING OR ABD PAIN. .
--- NOTE | 2022-04-30 19:30 | NUR ---
CLOSING NOTES PT STABLE RESTING COMFORTABLEY. DENIES ANY PAIN OR ORTEHR DISCOMFORT. FAMILY AT BED SIDE. REPORT GIVEN TO ASHLEY DURHAM
[2022-04-30 20:00] VITALS: BP_SYST 129
--- NOTE | 2022-04-30 20:18 | NUR ---
NGT HAS BEEN CLAMPED SINCE 12PM THIS AFTERNOON. RECONNECTED NGT AFTER 8 HOURS ORDERED AND 100ML BROWNISH DRAINAGE RECEIVED. NGT REMOVED ORDERED FOR DRAINAGE LESS THEN 200ML. Kyree NOONAN RN.
[2022-04-30] MEDS ORDERED: TRACE ELEMENTS IV SCH ×6 (21:00)
[2022-04-30] MEDS ORDERED: TPN CENTRAL IV SCH ×6 (21:00)
[2022-04-30] MEDS ORDERED: MVI IV SCH ×6 (21:00)
[2022-04-30] MEDS ORDERED: [UNRECOGNIZED DRUG - OTHER] IV SCH ×6 (21:00)
[2022-04-30] MEDS ORDERED: K PHOS IV SCH ×6 (21:00)
[2022-05-01] MEDS: INSULIN REGULAR, HUMAN 100 UNITS/ML, 3 ML VIAL (humuLIN R) SUBCUT PRN (01:03)
[2022-05-01 04:00] VITALS: BP_SYST 132
[2022-05-01] MEDS: KCL 40 mEq in D5W 1000 mL 1,000 ML IV SCH ×3 (04:38→18:54)
[2022-05-01 07:09] LABS: BASOPHILS % (AUTO) 0.2 % (0.0-2.0); EOSINOPHILS # (AUTO) 0.2 K/uL (0.0-0.4); EOSINOPHILS % (AUTO) 2.3 % (0.0-4.0); HEMATOCRIT 30.2 % (36-54); HEMOGLOBIN 10.6 g/dL (14.0-18.0); LYMPHOCYTES # (AUTO) 0.8 K/uL (1.0-5.5); MEAN CORPUSCULAR HEMOGLOBIN 31 pg (27-31); MEAN CORPUSCULAR HGB CONC 35 % (32-36); MEAN CORPUSCULAR VOLUME 87 fL (79.0-98.0); MONOCYTES # (AUTO) 0.7 K/uL (0.0-1.0); MONOCYTES % (AUTO) 8.1 % (1.7-9.3); NEUTROPHILS # (AUTO) 6.4 K/uL (1.8-7.7); NEUTROPHILS % (AUTO) 79.4 % (40.0-70.0); PLATELET COUNT (AUTO) 288 K/uL (130-430); RED BLOOD CELL COUNT(AUTO) 3.48 MIL/uL (4.2-6.2); RED CELL DISTRIBUTION WIDTH 12.8 % (9.0-15.0); WHITE BLOOD COUNT (AUTO) 8.1 K/uL (4.8-10.8)
[2022-05-01 07:30] LABS: ALBUMIN 2.1 g/dL (3.4-4.8); CALCIUM 7.8 mg/dL (8.4-11.0); CREATININE 0.73 mg/dL (0.55-1.30); PHOSPHORUS 2.5 mg/dL (2.7-4.5); TOTAL BILIRUBIN 0.7 mg/dL (0.0-1.0)
[2022-05-01 08:00] VITALS: BP_SYST 122
--- NOTE | 2022-05-01 10:35 | NUR ---
CONSULTATION PAGED REASON FOR CONSULTATION:ILEUS WAS CONSULT CALLED?Y PERSON WHO WAS NOTIFIED:KINJAL CONSULTING PHYSICIAN:IVETTE STORY SANDBLAST OR SHOTBLAST EQUIPMENT TENDER SPECIALTY:GI SANDBLAST OR SHOTBLAST EQUIPMENT TENDER PHONE NUMBER:[phone] REQUESTING PHYSICIAN: NICOLASA BRANDON
--- NOTE | 2022-05-01 11:23 | NUR ---
ROUNDS Patient in bed resting with family at bedside. No complaints of pain or sign of distress. Patient was able to ambulate to the restroom with assist and a walker. Breathing is nonlabored and even. IV is patent and running prescribed fluids. All needs met at this time and safety checks made.
[2022-05-01] MEDS ORDERED: NA PHOS 15 MM in NS 250 ML IV ONE (11:30)
[2022-05-01 11:52] VITALS: BP_SYST 121
[2022-05-01] MEDS ORDERED: MINERAL OIL 30 ML UDC PO ONE (12:45)
[2022-05-01] MEDS: METOCLOPRAMIDE HCL 10 MG/2 ML VIAL IVP SCH ×2 (13:46→18:53)
[2022-05-01 16:33] VITALS: BP_SYST 126
[2022-05-01] MEDS: MINERAL OIL 30 ML UDC PO SCH (18:02)
--- NOTE | 2022-05-01 19:30 | NUR ---
OPENING NOTE Pt is awake lying in bed, at bedside. Pt is a/o x4, ambulatory with walker. No s/s of respiratory distress. Breathing even and unlabored on RA. RIRI picc line intact with fluids and TPN/lipids running at ordered rate. Fall and safety precautions in place with bed in lowest position, bed alarm on, and call light within reach
[2022-05-01 20:00] VITALS: BP_SYST 116
[2022-05-01] MEDS ORDERED: K PHOS IV SCH ×8 (21:00)
[2022-05-01] MEDS ORDERED: [UNRECOGNIZED DRUG - OTHER] IV SCH ×8 (21:00)
[2022-05-01] MEDS ORDERED: FAT EMULSIONS 250 ML IV SCH (21:00)
[2022-05-01] MEDS ORDERED: SODIUM CHLORIDE IV SCH ×8 (21:00)
[2022-05-01] MEDS ORDERED: TPN CENTRAL IV SCH ×8 (21:00)
[2022-05-01] MEDS ORDERED: MAGNESIUM SULFATE IV SCH ×8 (21:00)
--- NOTE | 2022-05-02 00:15 | NUR ---
ROUNDS Pt lying in bed, eyes closed. No s/s of acute distress. Breathing even and unlabored. Fall and safety checks in place
[2022-05-02 00:21] VITALS: BP_SYST 142
[2022-05-02] MEDS: METOCLOPRAMIDE HCL 10 MG/2 ML VIAL IVP SCH ×4 (00:30→18:48)
[2022-05-02] MEDS: KCL 40 mEq in D5W 1000 mL 1,000 ML IV SCH ×3 (01:20→12:49)
[2022-05-02] MEDS: MINERAL OIL 30 ML UDC PO SCH ×3 (06:50→12:19)
[2022-05-02] MEDS: INSULIN REGULAR, HUMAN 100 UNITS/ML, 3 ML VIAL (humuLIN R) SUBCUT PRN (07:00)
[2022-05-02 07:06] LABS: BASOPHILS % (AUTO) 0.1 % (0.0-2.0); EOSINOPHILS # (AUTO) 0.1 K/uL (0.0-0.4); EOSINOPHILS % (AUTO) 1.7 % (0.0-4.0); HEMATOCRIT 31.3 % (36-54); LYMPHOCYTES # (AUTO) 0.9 K/uL (1.0-5.5); LYMPHOCYTES % (AUTO) 11.3 % (20.5-51.5); MEAN CORPUSCULAR HEMOGLOBIN 30 pg (27-31); MEAN CORPUSCULAR HGB CONC 35 % (32-36); MEAN CORPUSCULAR VOLUME 86 fL (79.0-98.0); MONOCYTES # (AUTO) 0.5 K/uL (0.0-1.0); MONOCYTES % (AUTO) 6.4 % (1.7-9.3); NEUTROPHILS # (AUTO) 6.5 K/uL (1.8-7.7); NEUTROPHILS % (AUTO) 80.5 % (40.0-70.0); PLATELET COUNT (AUTO) 303 K/uL (130-430); RED BLOOD CELL COUNT(AUTO) 3.63 MIL/uL (4.2-6.2); WHITE BLOOD COUNT (AUTO) 8.1 K/uL (4.8-10.8)
--- NOTE | 2022-05-02 07:29 | NUR ---
CLOSING NOTE Pt is awake lying in bed. No s/s of respiratory distress. Breathing even and unlabored on RA. RIRI picc line intact with fluids and TPN/lipids running at ordered rate. All needs met throughout shift. Fall and safety precautions in place with bed in lowest position, bed alarm on, and call light within reach
--- NOTE | 2022-05-02 07:35 | NUR ---
OPENING NOTES: PT IN BED WITH EYES CLOSED, A/O X4. BREATHING EVEN AND UNLABORED ON RA. NO S/S OF DISTRESS OR PAIN REPORTED. ALL NEEDS MET AT THIS TIME, SAFETY CHECKS MADE AND CALL LIGHT WITHIN REACH.
[2022-05-02 07:41] VITALS: BP_SYST 129
[2022-05-02 08:26] LABS: CALCIUM 7.6 mg/dL (8.4-11.0); CREATININE 0.67 mg/dL (0.55-1.30); PHOSPHORUS 2.7 mg/dL (2.7-4.5); TOTAL BILIRUBIN 0.5 mg/dL (0.0-1.0)
--- NOTE | 2022-05-02 09:45 | NUR ---
MD DR LOYA AT BEDSIDE WITH PT. SAID HAVE PT CALL HIM WHEN SHE VISITS.
[2022-05-02 11:50] VITALS: BP_SYST 112
--- NOTE | 2022-05-02 12:00 | NUR ---
ROUNDS PT IN BED WITH EYES CLOSED. BREATHING EVEN AND UNLABORED ON RA. NO S/S OF DISTRESS OR PAIN REPORTED. ALL NEEDS MET AT THIS TIME, SAFETY CHECKS MADE AND CALL LIGHT WITHIN REACH.
--- NOTE | 2022-05-02 14:50 | NUR ---
SPOKE WITH DR LOYA. NEW ORDERS GIVEN TO DC TPN.
--- NOTE | 2022-05-02 14:56 | NUR ---
MD: SPOKE TO DR. CORONA, PT'S SURGEON. HE SAID TO REMOVE THE DRESSING AND REPLACE IT WITH CURAD PETROLEUM STRIPS ON TOP OF INCISION AND DAWNA AND TO COVER WITH TEGADERM.
[2022-05-02 16:00] VITALS: BP_SYST 111
--- NOTE | 2022-05-02 17:14 | NUR ---
SPOKE WITH DR. MITCHELL. NEW ORDERS TO ADVANCE DIET TO SOFT AND FOR PT TO MINERAL OIL ONCE DAILY.
--- NOTE | 2022-05-02 18:23 | NUR ---
CLOSING NOTES: PT IN BED . NEEDED TO AMBULATE TO USE TOILET. NO S/S OF DISTRESS OR PAIN REPORTED. IV IS PATENT AND ON INFUSION PUMPS. BREATHING IS EVEN AND UNLABORED ON RA. AL NEEDS MET AT THIS TIME, SAFETY CHECKS MADE AND CALL LIGHT WITHIN REACH. WILL ENDORSE TO CANDY DECORATOR.
--- NOTE | 2022-05-02 19:15 | NUR ---
PT IN BED, BY BEDSIDE, NO S/S OF RESPIRATORY DISTRESS NOTED, PT DENIED AY PAIN AT THIS TIME, ABD INCISION X3 DRY, CLEAN AND INTACT, PT VOIDING VIA URINAL. KCL AT 120CC INFUSING INTO PICC LINE IN LA, SCD TO BLE, USING SPIROMETER, SAFETY CHECKS DOEN, V/S CHEKCTED AND WNL, LOW BED, CALL LIGHT WITHIN EASY REACH, WILL CONTINUE WITH CARE PLAN
[2022-05-02] MEDS ORDERED: [UNRECOGNIZED DRUG - OTHER] IV SCH ×9 (21:00)
[2022-05-02] MEDS ORDERED: TPN CENTRAL IV SCH ×9 (21:00)
[2022-05-02] MEDS ORDERED: SODIUM CHLORIDE IV SCH ×9 (21:00)
[2022-05-02] MEDS ORDERED: NA PHOS IV SCH ×9 (21:00)
[2022-05-03 00:41] VITALS: BP_SYST 118; BP_SYST 137
[2022-05-03] MEDS: METOCLOPRAMIDE HCL 10 MG/2 ML VIAL IVP SCH ×5 (00:50→23:43)
[2022-05-03 01:27] VITALS: BP_SYST 106
[2022-05-03] MEDS ORDERED: KCL 40mEq in D5/0.45NS 1000 mL 1,000 ML IV ONE (02:05)
[2022-05-03 07:06] LABS: BASOPHILS % (AUTO) 0.2 % (0.0-2.0); EOSINOPHILS # (AUTO) 0.1 K/uL (0.0-0.4); EOSINOPHILS % (AUTO) 1.4 % (0.0-4.0); HEMATOCRIT 31.7 % (36-54); HEMOGLOBIN 11.4 g/dL (14.0-18.0); LYMPHOCYTES # (AUTO) 0.6 K/uL (1.0-5.5); LYMPHOCYTES % (AUTO) 7.5 % (20.5-51.5); MEAN CORPUSCULAR HEMOGLOBIN 31 pg (27-31); MEAN CORPUSCULAR HGB CONC 36 % (32-36); MEAN CORPUSCULAR VOLUME 86 fL (79.0-98.0); MONOCYTES # (AUTO) 0.6 K/uL (0.0-1.0); MONOCYTES % (AUTO) 7.2 % (1.7-9.3); NEUTROPHILS # (AUTO) 7.3 K/uL (1.8-7.7); NEUTROPHILS % (AUTO) 83.7 % (40.0-70.0); PLATELET COUNT (AUTO) 330 K/uL (130-430); RED BLOOD CELL COUNT(AUTO) 3.69 MIL/uL (4.2-6.2); RED CELL DISTRIBUTION WIDTH 12.5 % (9.0-15.0); WHITE BLOOD COUNT (AUTO) 8.7 K/uL (4.8-10.8)
--- NOTE | 2022-05-03 07:16 | NUR ---
PT IN BED, AOX1, NO S/S OF DISTRESS NOTED. BREATHING IS EVEN AND UNLABORED. DENIED ANY SOB, CP OR ANY PAIN AT THIS TIME. WILL ENDORSE TO AM SHIFT
[2022-05-03 07:48] LABS: CALCIUM 7.9 mg/dL (8.4-11.0); CREATININE 0.92 mg/dL (0.55-1.30); PHOSPHORUS 2.3 mg/dL (2.7-4.5)
[2022-05-03 07:50] VITALS: BP_SYST 99
--- NOTE | 2022-05-03 07:50 | NUR ---
OPENING NOTE Patient in bed resting. A/O x 4, Setswana speaking,. No pain, no SOB, no distress at this time. Breathing even and unlabored on RA. Patient PICC to Left arm patent on infusion pump. Patient Soft diet and able to eat on his own. All needs met at this time. Bed locked in lowest position, Call light within reach. Will continue to monitor.
[2022-05-03] MEDS: MINERAL OIL 30 ML UDC PO SCH (08:51)
[2022-05-03] MEDS: KCL 40 mEq in D5W 1000 mL 1,000 ML IV SCH ×2 (09:43→18:03)
[2022-05-03] MEDS ORDERED: METO-290 PO (10:29)
[2022-05-03] MEDS ORDERED: MAGNESIUM SULFATE 50 ML IV ONE (11:00)
--- NOTE | 2022-05-03 12:10 | NUR ---
ROUNDS: Patient in bed resting. A/O x 4, Somali speaking,. No pain, no SOB, no distress at this time. Breathing even and unlabored on RA. All needs met at this time. Bed locked in lowest position, Call light within reach. Will continue to monitor.
[2022-05-03 12:24] VITALS: BP_SYST 103
[2022-05-03] MEDS ORDERED: NA PHOS 30 MM in NS 250 ML IV ONE (13:00)
--- NOTE | 2022-05-03 14:03 | NUR ---
Spoke with MD Jade regarding a stay of one more night per and patient's request due to not being able to eat comfortable yet. One more night for observation was granted. Orders carried out.
--- NOTE | 2022-05-03 16:05 | NUR ---
ROUNDS: Patient in bed resting, with at bedside. A/O x 4, Tongan speaking,. No pain, no SOB, no distress at this time. Breathing even and unlabored on RA. All needs met at this time. Bed locked in lowest position, Call light within reach. Will continue to monitor.
[2022-05-03 16:46] VITALS: BP_SYST 112
--- NOTE | 2022-05-03 17:00 | NUR ---
Changed abdominal dressing of patient.
--- NOTE | 2022-05-03 18:47 | NUR ---
CLOSING NOTE Patient in bed resting. A/O x 4, Turkish speaking, at bedside. No pain, no SOB, no distress at this time. Breathing even and unlabored on RA. Patient PICC to Left arm patent on infusion pump. Patient Soft diet and able to eat on his own. All needs met at this time. Bed locked in lowest position, Call light within reach. Will endorse to nightshift nurse.
--- NOTE | 2022-05-03 19:10 | NUR ---
PT IN BED, aox4, NO S/S OF RESPIRATORY DISTRESS NOTED, PT DENIED AY PAIN AT THIS TIME, ABD INCISION X3 DRY, CLEAN AND INTACT, PT VOIDING VIA URINAL. INFUSING 120cc TO PICC LINE IN LA, SCD TO BLE, USING SPIROMETER, SAFETY CHECKS DOEN, V/S CHEKCED AND WNL, LOW BED, CALL LIGHT WITHIN EASY REACH, WILL CONTINUE WITH CARE PLAN
[2022-05-03 19:20] VITALS: BP_SYST 115
--- NOTE | 2022-05-03 22:18 | NUR ---
HIGH ALERT NOTE: Called ,A back at [phone] identified within the medical roster to verify physician authenticity.
[2022-05-03] MEDS ORDERED: LORazepam 2 MG/ML VIAL IVP ONE (22:30)
[2022-05-04 01:04] VITALS: BP_SYST 111
[2022-05-04] MEDS: KCL 40 mEq in D5W 1000 mL 1,000 ML IV SCH ×2 (04:19→11:40)
[2022-05-04] MEDS: METOCLOPRAMIDE HCL 10 MG/2 ML VIAL IVP SCH ×2 (06:18→12:47)
[2022-05-04 06:21] LABS: BASOPHILS % (AUTO) 0.4 % (0.0-2.0); EOSINOPHILS # (AUTO) 0.1 K/uL (0.0-0.4); EOSINOPHILS % (AUTO) 1.9 % (0.0-4.0); HEMATOCRIT 29.5 % (36-54); HEMOGLOBIN 10.6 g/dL (14.0-18.0); LYMPHOCYTES # (AUTO) 1.2 K/uL (1.0-5.5); LYMPHOCYTES % (AUTO) 16.4 % (20.5-51.5); MEAN CORPUSCULAR HEMOGLOBIN 30 pg (27-31); MEAN CORPUSCULAR HGB CONC 36 % (32-36); MEAN CORPUSCULAR VOLUME 85 fL (79.0-98.0); MONOCYTES # (AUTO) 0.7 K/uL (0.0-1.0); MONOCYTES % (AUTO) 9.5 % (1.7-9.3); NEUTROPHILS # (AUTO) 5.1 K/uL (1.8-7.7); NEUTROPHILS % (AUTO) 71.8 % (40.0-70.0); PLATELET COUNT (AUTO) 345 K/uL (130-430); RED CELL DISTRIBUTION WIDTH 12.9 % (9.0-15.0)
--- NOTE | 2022-05-04 06:51 | NUR ---
Pt asleep in bed, , respiration even and unlabored, no signs of distress. In stable condition. incision dsg clean, dry and intact. All safety precaution secured, bed in low position and call light w/in reached.
[2022-05-04 07:08] LABS: ALBUMIN 1.9 g/dL (3.4-4.8); CALCIUM 7.9 mg/dL (8.4-11.0); CREATININE 0.81 mg/dL (0.55-1.30); PHOSPHORUS 3.7 mg/dL (2.7-4.5); TOTAL BILIRUBIN 0.5 mg/dL (0.0-1.0)
[2022-05-04 08:00] VITALS: BP_SYST 105
--- NOTE | 2022-05-04 08:00 | NUR ---
Opening Notes Patient is Aox4. No ss of acute respiratory distress noted. breathing is even an nonlabored, on room air. IVF running. RIRI PICC line patent. Patient denies pain. No SOB noted. Vital signs obtained, as documented. Safety precautions in place and call light within reach.
[2022-05-04] MEDS: MINERAL OIL 30 ML UDC PO SCH (09:01)
--- NOTE | 2022-05-04 09:09 | NUR ---
Notes patient is eating breakfast at bedside. at bedside. Patient denies pain. Denies any nausea. No distress noted. Bed is locked and at lowest position. Call light within reach.
[2022-05-04 11:14] VITALS: BP_SYST 102
--- NOTE | 2022-05-04 12:00 | NUR ---
NOTES PATIENT IS EATING LUNCH. DENIES PAIN. NO DISTRESS NOTED. AT BEDSIDE. STABLE. SAFETY PRECAUTIONS IN PLACE AND CALL LIGHT WITHIN REACH.
[2022-05-04 12:04] VITALS: BP_SYST 102
--- NOTE | 2022-05-04 14:29 | NUR ---
D/C Patient Patient given medication reconciliation form and D/C instructions. Exit Care provided. Patient verbalized understanding. MD discussed with patient the results and treatment provided. Ambulatory with walker for discharge to home. Patient in stable condition, ID band removed. Wound care done. IV catheter removed, intact and dressing applied, no active bleeding. Rx of given. Patient educated on pain management. All belongings sent with patient.
== END 2022-05-04 14:25 | disposition home or self-care (01) | DRG 853 ==
LOC: SED 20:30 → SMU 04-23 01:53
PROVIDERS: ADMIT Preventive Medicine Preventive Medicine/Occupational Environmental Medicine; ATTEND Preventive Medicine Preventive Medicine/Occupational Environmental Medicine
PROC: 0DB80ZZ Excision of Small Intestine, Open Approach (ICD-10-PCS; 2022-04-26)
PROC: 02H633Z Insertion of Infusion Device into Right Atrium, Percutaneous Approach (ICD-10-PCS; principal; 2022-04-26 13:30)
DX: A41.9 Sepsis, unspecified organism (principal); E43 Unspecified severe protein-calorie malnutrition; K56.609 Unspecified intestinal obstruction, unspecified as to partial versus complete obstruction; E87.0 Hyperosmolality and hypernatremia; E87.1 Hypo-osmolality and hyponatremia; Z20.822 Contact with and (suspected) exposure to COVID-19; D64.9 Anemia, unspecified; E88.09 Other disorders of plasma-protein metabolism, not elsewhere classified; Z68.22 Body mass index [BMI] 22.0-22.9, adult; R53.81 Other malaise; R73.9 Hyperglycemia, unspecified; E83.39 Other disorders of phosphorus metabolism; E83.42 Hypomagnesemia; E83.52 Hypercalcemia; E87.5 Hyperkalemia; R31.9 Hematuria, unspecified; E87.6 Hypokalemia; Z87.891 Personal history of nicotine dependence; Z90.49 Acquired absence of other specified parts of digestive tract; Z92.21 Personal history of antineoplastic chemotherapy; Z85.72 Personal history of non-Hodgkin lymphomas
CPT/HCPCS: 36415; 71045; 74018; 74250-TC; 76376; 76770; 80048; 80053; 80061; 81000; 83690; 83735; 84100; 84478; 85025; 85610-TC; 85651-TC; 85730-TC; 86140; 86886; 86900; 86901; 87081; 87086; 88304; 88305; 88307; 88342; 93005; 99285; J0330; J0696; J2001; J2060; J2270; J2704; J2765; J3475; J3480; J3490; J7042; J7050; J7060; J7131; Q9963